=== PATIENT | male | born 1970 ===

== ENCOUNTER 2018-05-05 09:05 | Emergency (ER) | payer OTHER ==
[~2018-05-05 09:05] MED LIST: PENICILLIN VK 500 MG TAB PO SCH
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
[2018-05-05 10:55] VITALS: BP 141/89
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
== END 2018-05-05 11:03 | disposition home or self-care (01) ==
DX: K08.89 Other specified disorders of teeth and supporting structures (principal); R03.0 Elevated blood-pressure reading, without diagnosis of hypertension